=== PATIENT | female | born 1985 | race Caucasian/White ===

== ENCOUNTER 2016-12-14 14:25 | Emergency (ER) | payer MEDICAID ==
[~2016-12-14] VITALS: Ht 162.6 cm; Wt 103.0 kg
[2016-12-14 14:30] VITALS: BP 127/58; PULSE 103; RESP 16; TEMP 98.3; O2SAT 97
--- NOTE | 2016-12-14 15:14 | PD ---
HPI Chief Complaint: Musculoskeletal Complaint Time Seen by Provider: 15:06 Travel History International Travel<30 days: No Contact w/Intl Traveler<30days: No Traveled to known affect area: No History of Present Illness HPI 31-year-old female presents to emergency department for a 2 day history of worsening low back pain after gardening . States that she was twisting all day and felt pain in her lower back. Over the last couple days the pain has increased and has mild tightness. Pain is worse with movement decreased with rest. Is occasional sharp pain without radiation and lower back. Denies fever, chills, chest pain, shortness of breath, trauma, IV drug use, loss of bowel or bladder function, or dysuria. She is concerned that this something more serious. PFSH Past Medical History ?: Not LMP: 2-3 WEEKS AGO Social History Tobacco Use: No Allergies-Medications (Allergen,Severity, Reaction): Coded Allergies: Penicillins (Verified Allergy, Unknown, RASH, 12/14/16) Reported Meds & Prescriptions Reported Meds & Active Scripts Active Flexeril (Cyclobenzaprine HCl) 10 Mg Tab 10 Mg PO TID 5 Days Review of Systems Except as stated in HPI: all other systems reviewed are Neg Physical Exam Narrative GENERAL: Well developed, well nourished, mild distress SKIN: Focused skin assessment warm/dry. HEAD: Atraumatic. Normocephalic. EYES: Pupils equal and round. No scleral icterus. No injection or drainage. ENT: No nasal bleeding or discharge. Mucous membranes pink and moist. NECK: Trachea midline. No JVD. CARDIOVASCULAR: Regular rate and rhythm. No murmur appreciated. RESPIRATORY: No accessory muscle use. Clear to auscultation. Breath sounds equal bilaterally. ABDOMINAL: no tenderness, rigidity, or distention. MUSCULOSKELETAL: No obvious deformities. No clubbing. No cyanosis. No edema. No tenderness over spinous processes. Mild TTP of the paraspinous muscles near L4 right greater than left. neurovascularly intact. No CVA tenderness. NEUROLOGICAL: Awake and alert. No obvious cranial nerve deficits. Motor grossly within normal limits. Normal speech. PSYCHIATRIC: Appropriate mood and affect; insight and judgment normal. Data Data Last Documented VS Vital Signs Date Time Temp Pulse Resp B/P (MAP) Pulse Ox O2 Delivery O2 Flow Rate FiO2 12/14/16 14:30 98.3 103 16 127/58 (81) 97 Orders Orders Ed Discharge Order (12/14/16 15:16) [facility] Medical Decision Making Medical Screen Exam Complete: Yes Emergency Medical Condition: Yes Differential Diagnosis Lumbago versus muscle strain versus sprain Narrative Course 31y obese female presents to the emergency department for low back pain that began after gardening. She has never experienced this back pain before so was concerned that she has a serious condition going on. Pt describes this pain as dull, constant with occasional sharp pain with movement without radiation of pain. Movement increases her pain, rest somewhat relieves her pain. She has taken OTC motrin without significant relief. No red flag symptoms. Physical exam was mildly limited because of body habitus however, she had TTP of the paraspinous muscles in the L4 region of her back. Difficulty assessing for muscle spasms. Because of benign findings, imaging was not necessary. Reassured patient. Explained the pathophysiology of her back pain. Pt agreed with withholding imaging. Muscle relaxers for her symptoms. Avoid bed rest. Advised when to return to the emergency department- red flags symptoms. Diagnosis Primary Impression: Acute low back pain Qualified Codes: M54.5 - Low back pain Referrals: Primary Care Physician Additional Instructions: Perform light stretches of the lower back and legs, and alternate heat and ice packs. If you develop increased pain, weakness, fever, chills, or bowel or bladder issues, return to the ED for further treatment and evaluation. Follow up with your primary care physician in 2-3 days. Scripts Cyclobenzaprine (Flexeril) 10 Mg Tab 10 MG PO TID for Muscle Spasm for 5 Days, #15 TAB 0 Refills Prov: Pam Bass MD 12/14/16 Disposition: 01 DISCHARGE HOME Condition: Stable Fely Fnoseca Dec 14, 2016 15:14
[2016-12-14] MEDS ORDERED: CYCL1TAB29 PO (15:16)
== END 2016-12-14 16:11 | disposition home or self-care (01) ==
LOC: PHEFT 14:25
DX: M54.5 Low back pain (principal); X58.XXXA Exposure to other specified factors, initial encounter; Y93.H2 Activity, gardening and landscaping
CPT/HCPCS: 99283